=== PATIENT | female | born 1990 | race Two or more races ===

== ENCOUNTER 2017-02-08 21:18 | Emergency (ER) | payer OTHER ==
[~2017-02-08 21:18] MED LIST: FLINTSTONES1 EACH PO; NO MEDICATIONS
== END 2017-02-08 22:09 | disposition home or self-care (01) ==
LOC: SED 21:18
DX: S91.012A Laceration without foreign body, left ankle, initial encounter (principal); F17.210 Nicotine dependence, cigarettes, uncomplicated; Z88.1 Allergy status to other antibiotic agents; W17.89XA Other fall from one level to another, initial encounter; Y92.009 Unspecified place in unspecified non-institutional (private) residence as the place of occurrence of the external cause
CPT/HCPCS: 12001; 90471; 90715; 99283